=== PATIENT | male | born 1995 | race Caucasian/White ===

== ENCOUNTER 2016-08-12 20:48 | Emergency (ER) | payer BC ==
[2016-08-12 20:54] VITALS: BP 140/83; PULSE 88; TEMP 98.7; BMI 25.8
--- NOTE | 2016-08-12 22:03 | PDOC ---
History of Present Illness - History of Present Illness Initial Comments: 08/12/16 23:06 Patient is a 20 year old male with no significant medical hx who is presenting to the ED s/p fall from today. The patient fell down five steps at his girlfriends place this evening, hitting his back and head. The patient sustained abrasions to his knuckles and face, he also complains of lower back pain. The patient did not lose consciousness. Denies any lightheadedness, chest pain, shortness of breath, dizziness, or visual changes. <Kasia Young - Last Filed: 08/12/16 23:06> <Rupindre Laughlin - Last Filed: 08/13/16 00:15> - General Chief Complaint: Injury Stated Complaint: BACK PAIN/HAND INJURY Time Seen by Provider: 08/12/16 22:01 Past History <Kasia Young - Last Filed: 08/12/16 23:06> - Psycho/Social/Smoking Cessation Hx Suicidal Ideation: No Smoking History: Never smoked <Rupinder Laughlin - Last Filed: 08/13/16 00:15> - Past Medical History Allergies/Adverse Reactions: Allergies Allergy/AdvReac Type Severity Reaction Status Date / Time No Known Allergies Allergy Verified 08/12/16 20:51 Home Medications: Ambulatory Orders NK [No Known Home Medication] 08/12/16 Review of Systems - Review of Systems Comments:: 08/12/16 23:06 CONSTITUTIONAL: Absent: fever, chills, diaphoresis, generalized weakness, malaise, loss of appetite HEENT: Present: facial abrasion Absent: rhinorrhea, nasal congestion, throat pain, throat swelling, difficulty swallowing, mouth swelling, ear pain, eye pain, visual changes CARDIOVASCULAR: Absent: chest pain, syncope, palpitations, irregular heart rate, lightheadedness , peripheral edema RESPIRATORY: Absent: cough, shortness of breath, dyspnea with exertion, orthopnea, wheezing, stridor, hemoptysis GASTROINTESTINAL: Absent: abdominal pain, abdominal distension, nausea, vomiting, diarrhea, constipation, melena, hematochezia GENITOURINARY: Absent: dysuria, frequency, urgency, hesitancy, hematuria, flank pain, genital pain MUSCULOSKELETAL: Present: lower back pain Absent: myalgia, arthralgia, joint swelling SKIN: Present: abrasions to knuckles Absent: rash, itching, pallor HEMATOLOGIC/IMMUNOLOGIC: Absent: easy bleeding, easy bruising, lymphadenopathy, frequent infections ENDOCRINE: Absent: unexplained weight gain, unexplained weight loss, heat intolerance, cold intolerance NEUROLOGIC: Absent: headache, focal weakness or paresthesia, dizziness, unsteady gait, seizure, mental status changes, bladder or bowel incontinence. PSYCHIATRIC: Absent: anxiety, depression, suicidal or homicidal ideation, hallucinations <Kasia Young - Last Filed: 08/12/16 23:06> *Physical Exam - Vital Signs Last Vital Signs Temp Pulse Resp BP Pulse Ox 98.7 F 88 18 140/83 98 08/12/16 20:52 08/12/16 20:52 08/12/16 20:52 08/12/16 20:52 08/12/16 20:52 - Physical Exam Comments: 08/12/16 23:07 GENERAL: Well developed, well nourished. Awake and alert. No acute distress. HEENT: Normocephalic. Small facial abrasion less than 1 cm. PERRLA, EOMI. No conjunctival pallor. Sclera are non-icteric. Moist mucous membranes. Oropharynx is clear. NECK: Supple. Full ROM. No JVD. Carotid pulses 2+ and symmetric, without bruits. No thyromegaly. No lymphadenopathy. CARDIOVASCULAR: Regular rate and rhythm. No murmurs, rubs, or gallops. Distal pulses are 2+ and symmetric. PULMONARY: No evidence of respiratory distress. Lungs clear to auscultation bilaterally. No wheezing, rales or rhonchi. ABDOMINAL: Soft. Non-tender. Non-distended. No rebound or guarding. No organomegaly. Normoactive bowel sounds. MUSCULOSKELETAL: Lumbar tenderness to L4. Normal range of motion at all joints. No bony deformities. No CVA tenderness. EXTREMITIES: No cyanosis. No clubbing. No edema. No calf tenderness. SKIN: Multiple abrasions to knuckles bilaterally. Warm and dry. Normal capillary refill. No rashes. No jaundice. NEUROLOGICAL: Alert, awake, appropriate. Cranial nerves 2-12 intact. Normal speech. Toes are down-going bilaterally. PSYCHIATRIC: Cooperative. Good eye contact. Appropriate mood and affect. <Kasia Young - Last Filed: 08/12/16 23:06> - Vital Signs Last Vital Signs Temp Pulse Resp BP Pulse Ox 98.7 F 88 18 140/83 98 08/12/16 20:52 08/12/16 20:52 08/12/16 20:52 08/12/16 20:52 08/12/16 20:52 <Rupinder Laughlin - Last Filed: 08/13/16 00:15> ED Treatment Course - Medications Given in the ED: ED Medications Discontinued Medications Generic Name Dose Route Start Last Admin Trade Name Daisy PRN Reason Stop Dose Admin Bacitracin 1 applic 08/12/16 22:04 08/12/16 22:09 Bacitracin - TP 08/12/16 22:05 1 applic ONCE ONE Administration <Kasia Young - Last Filed: 08/12/16 23:06> *DC/Admit/Observation/Transfer - Attestations Scribe Attestion: 08/12/16 23:10 Documentation prepared by Kasia Young, acting as biomedical equipment tech for Rupinder Laughlin MD. <Kasia Young - Last Filed: 08/12/16 23:06> <Rupinder Laughlin - Last Filed: 08/13/16 00:15> Diagnosis at time of Disposition: Abrasions of multiple sites, Traumatic injury Back pain Qualifiers: Back pain location: low back pain Chronicity: acute Back pain laterality: bilateral Sciatica presence: without sciatica Qualified Code(s): M54.5 - Low back pain - Discharge Dispostion Disposition: HOME Condition at time of disposition: Stable - Referrals Referrals: STAFF,NOT ON [Primary Care Provider] - - Patient Instructions Printed Discharge Instructions: DI for Low Back Pain, DI for Hand Injury Additional Instructions: apply bacitracin to abrasions take motrin for pain
[2016-08-12] MEDS ORDERED: BACITRACIN 30 GM TUBE TOPICAL OINTMENT TP ONE (22:04)
[2016-08-12] MEDS ORDERED: IBUPROFEN 600 MG TABLET (FP) PO ONE ×2 (23:49→23:52)
== END 2016-08-13 00:18 | disposition home or self-care (01) ==
LOC: JERFT 20:48 → JER 20:48
DX: M54.5 Low back pain (principal); W10.8XXA Fall (on) (from) other stairs and steps, initial encounter; Y93.89 Activity, other specified; Y92.098 Other place in other non-institutional residence as the place of occurrence of the external cause
CPT/HCPCS: 72100-TC; 99282-25